=== PATIENT | female | born 2005 | race Caucasian/White ===

== ENCOUNTER 2023-10-22 04:23 | Emergency (ER) | payer MEDICAID ==
[~2023-10-22] VITALS: Ht 157.5 cm; Wt 85.0 kg
[2023-10-22 05:01] LABS: BASOPHILS % 0.2 % (0.0-2.0); EOSINOPHILS % 0.3 % (0.0-5.0); HEMATOCRIT. 39.5 % (36.0-48.0); HEMOGLOBIN. 13.3 g/dL (12.0-16.0); LYMPHOCYTES % 12.4 % (20.0-50.0); MEAN CORPUSCULAR HEMOGLOBIN 31.2 pg (28.0-32.0); MEAN CORPUSCULAR HGB CONC 33.6 g/dL (31.0-37.0); MEAN PLATELET VOLUME 10.1 fl (7.4-10.4); MONOCYTES % 5.7 % (2.0-8.0); NEUTROPHILS % 81.4 % (40.0-76.0); PLATELET 228 x1000/uL (130-400); RED BLOOD CELL COUNT 4.25 mill/uL (4.2-5.4); RED CELL DISTRIBUTION WIDTH 14.4 % (11.6-14.6); WHITE BLOOD COUNT 18.8 x1000/uL (4.5-11.0)
[2023-10-22 05:31] LABS: ALANINE AMINOTRANSFERASE < 7 IU/L (10-49); ALBUMIN 4.4 g/dL (3.2-4.8); ASPARTATE AMINOTRANSFERASE 13 IU/L (<34); B-HCG QUANTITATIVE 1456 mIU/mL (<3); BILIRUBIN TOTAL 0.4 mg/dL (0.1-1.0); CALCIUM 9.1 mg/dL (8.7-10.4); CARBON DIOXIDE 23 mEq/L (21-32); CHLORIDE 108 mEq/L (98-107); CREATININE 0.7 mg/dL (0.6-1.0); GLUCOSE 84 mg/dL (70-105); POTASSIUM 3.6 mEq/L (3.5-5.1); PROTEIN TOTAL 7.8 g/dL (6.0-8.3); SODIUM 134 mEq/L (136-145); UREA NITROGEN BLOOD 9 mg/dL (9-23)
[2023-10-22] MEDS: ACETAMINOPHEN 325MG TABLET PO ONE (05:34)
[2023-10-22] MEDS ORDERED: SODIUM CHLORIDE 0.9% IV ONE (06:45)
[2023-10-22] MEDS ORDERED: OXYTOCIN IV ONE (06:45)
[2023-10-22] MEDS ORDERED: OXYTOCIN 30 UNITS/500ML NS 500 ML IV ONE (06:45)
[2023-10-22 06:49] VITALS: O2SAT 99
[2023-10-22 07:14] VITALS: BP 117/64; PULSE 100; RESP 16; TEMP 98
== END 2023-10-22 07:19 | disposition short-term general hospital (02) ==
LOC: ER 04:48
DX: O62.9 Abnormality of forces of labor, unspecified (principal); Z3A.39 39 weeks gestation of pregnancy; O98.513 Other viral diseases complicating pregnancy, third trimester; Z20.822 Contact with and (suspected) exposure to COVID-19
CPT/HCPCS: 99291; 76805; 87426; 80053; 84702; 85025; 86850; 86900; 86901; 36415; J7040; J2590